=== PATIENT | female | born 1980 | race Caucasian/White ===

== ENCOUNTER 2020-12-14 20:25 | Emergency (ER) | payer MEDICAID, MEDICARE, OTHER ==
[~2020-12-14] VITALS: Ht 154.9 cm; Wt 84.0 kg
[2020-12-14] MEDS ORDERED: ALBUTEROL/IPRATROPIUM 2.5MG/0.5MG, 3 ML ONE (21:17)
[2020-12-14] MEDS ORDERED: ALBUTEROL/IPRATROPIUM 2.5MG/0.5MG, 3 ML NPPB ONE (21:30)
[2020-12-14 22:38] VITALS: BP 139/89
== END 2020-12-14 22:40 | disposition home or self-care (01) ==
LOC: ED 22:10
DX: J45.901 Unspecified asthma with (acute) exacerbation (principal); I10 Essential (primary) hypertension
CPT/HCPCS: 94640; 99283; J7512